=== PATIENT | female | born 1955 | race Caucasian/White ===

== ENCOUNTER → 2018-02-10 07:53 | Outpatient (CLI) | payer OTHER, SELFPAY ==
--- NOTE | 2018-02-10 | DI.MG.S_ITS ---
BILATERAL DIGITAL SCREENING MAMMOGRAM 3D/2D WITH CAD: 02/10/2018 CLINICAL: Routine screening. Family history of breast cancer. Comparison is made to exams dated: 01/04/2017 mammogram, 12/14/2015 mammogram, and 12/10/2014 mammogram - [facility]. The tissue of both breasts is predominantly fatty. Current study was also evaluated with a Computer Aided Detection (CAD) system. No significant masses, calcifications, or other findings are seen in either breast. There has been no significant interval change. IMPRESSION: NEGATIVE There is no mammographic evidence of malignancy. A 1 year screening mammogram is recommended. This exam was interpreted at Station ID: [id number]. NOTE: For mammograms, a report in lay terms will be sent to the patient. Approximately 15% of breast malignancies will not be visualized mammographically. In the management of a palpable breast mass, a negative mammogram must not discourage biopsy of a clinically suspicious lesion. Electronically Signed By: Rachel blake/paulie:02/10/2018 09:35:46 letter sent: Normal Exam ACR BI-RADS Category 1: Negative 3341F
== END ==
PROVIDERS: PCP Family Medicine; Visit Provider Family Medicine
DX: Z12.31 Encounter for screening mammogram for malignant neoplasm of breast (principal); Z80.3 Family history of malignant neoplasm of breast
CPT/HCPCS: 77063; 77067

== ENCOUNTER → 2019-12-26 09:03 | Outpatient (CLI) | payer OTHER, SELFPAY ==
[2019-12-26 10:04] LABS: Add Manual Diff / Slide Review NO; Basophils Absolute Auto 100 /uL (0-100); Basophils Percent Auto 0.7 % (0-2); Eosinophils Absolute Auto 200 /uL (0-450); Eosinophils Percent Auto 2.8 % (2-4); Hematocrit 42.7 % (36-46); Hemoglobin 14.6 g/dL (12.0-16.0); Lymphocytes Absolute Auto 1400 /uL (1100-4500); Lymphocytes Percent Auto 16.6 % (25-40); Mean Corpuscular HGB Conc 34.2 % (30-36); Mean Corpuscular Hemoglobin 31.3 PG (26-34); Mean Corpuscular Volume 91.6 fL (80-100); Monocytes Absolute Auto 500 /uL (0-900); Monocytes Percent Auto 5.8 % (3-14); Neutrophils Absolute Auto 6300 /uL (1500-7000); Neutrophils Percent Auto 74.1 % (50-75); Platelet Count 213 X10^3/uL (150-400); Red Blood Cell Count 4.67 X10^6/uL (4.0-5.2); White Blood Cell Count 8.4 X10^3/uL (4.5-11.0)
[2019-12-26 10:22] LABS: Hemoglobin A1C% w Est Avg Glu 7.2 % (4.0-6.0)
[2019-12-26 10:26] LABS: Alanine Aminotransferase 23 IU/L (<35); Albumin 4.2 g/dL (3.5-5.0); Albumin Globulin Ratio 1.4 (1.0-2.8); Alkaline Phosphatase 78 U/L (38-126); Aspartate Aminotransferase 23 IU/L (14-36); BUN Creatinine Ratio 21.5 (6-22); Bilirubin Total 0.6 mg/dL (0.2-1.3); Blood Urea Nitrogen 17 mg/dL (7-17); Calcium 9.3 mg/dL (8.4-10.2); Carbon Dioxide 31 mmol/L (22-32); Chloride 102 mmol/L (98-107); Cholesterol 128 mg/dL (140-199); Estimated Glomerular Filt Rate > 60.0 mL/min (>60); Globulin 3.1 g/dL (1.7-4.1); Glucose 149 mg/dL (80-110); HDL Cholesterol 49 mg/dL (40-60); HEMOLYSIS 15 (0-50); LDL Cholesterol Calculated 60 mg/dL (<100); Potassium 4.4 mmol/L (3.4-5.1); Sodium 140 mmol/L (137-145); Total Protein 7.3 g/dL (6.3-8.2); Triglycerides 97 mg/dL (35-150)
[2019-12-26 10:49] LABS: Microalbumi Creatinin Ratio Ur 6.1 ug/mg CR (<30); Microalbumin Urine Random 0.6 mg/dL (0-1.6)
== END ==
PROVIDERS: PCP Family Medicine; Referring Provider Family Medicine; Visit Provider Family Medicine
DX: Z00.00 Encounter for general adult medical examination without abnormal findings (principal); E11.9 Type 2 diabetes mellitus without complications; E78.5 Hyperlipidemia, unspecified
CPT/HCPCS: 36415; 80053; 80061; 82043; 82570; 83036; 84443; 85025

== ENCOUNTER → 2020-01-22 11:57 | Outpatient (CLI) | payer OTHER, SELFPAY ==
--- NOTE | 2020-01-22 | DI.MG.S_ITS ---
BILATERAL DIGITAL SCREENING MAMMOGRAM 3D/2D WITH CAD: 01/22/2020 CLINICAL: Routine screening. Family history of breast cancer. Comparison is made to exams dated: 02/10/2018 mammogram and 01/04/2017 mammogram - [facility]. The tissue of both breasts is predominantly fatty. Current study was also evaluated with a Computer Aided Detection (CAD) system. No significant masses, calcifications, or other findings are seen in either breast. There has been no significant interval change. IMPRESSION: NEGATIVE There is no mammographic evidence of malignancy. A 1 year screening mammogram is recommended. This exam was interpreted at Station ID: [id number]. NOTE: For mammograms, a report in lay terms will be sent to the patient. Approximately 15% of breast malignancies will not be visualized mammographically. In the management of a palpable breast mass, a negative mammogram must not discourage biopsy of a clinically suspicious lesion. Electronically Signed By: Placido savage/paulie:01/22/2020 16:54:33 letter sent: Normal Exam ACR BI-RADS Category 1: Negative 3341F
== END ==
PROVIDERS: PCP Family Medicine; Referring Provider Family Medicine; Visit Provider Family Medicine
DX: Z12.31 Encounter for screening mammogram for malignant neoplasm of breast (principal); Z80.3 Family history of malignant neoplasm of breast
CPT/HCPCS: 77063; 77067

== ENCOUNTER → 2021-01-27 15:18 | Outpatient (CLI) | payer OTHER, SELFPAY ==
--- NOTE | 2021-01-27 | DI.MG.S_ITS ---
BILATERAL DIGITAL SCREENING MAMMOGRAM 3D/2D WITH CAD: 01/27/2021 CLINICAL: Routine screening. Comparison is made to exams dated: 01/22/2020 mammogram, 02/10/2018 mammogram, and 01/04/2017 mammogram - [facility]. The tissue of both breasts is predominantly fatty. Current study was also evaluated with a Computer Aided Detection (CAD) system. No significant masses, calcifications, or other findings are seen in either breast. There has been no significant interval change. IMPRESSION: NEGATIVE There is no mammographic evidence of malignancy. A 1 year screening mammogram is recommended. This exam was interpreted at Station ID: [id number]. NOTE: For mammograms, a report in lay terms will be sent to the patient. Approximately 15% of breast malignancies will not be visualized mammographically. In the management of a palpable breast mass, a negative mammogram must not discourage biopsy of a clinically suspicious lesion. Electronically Signed By: Placido savage/paulie:01/27/2021 15:46:59 letter sent: Normal Exam ACR BI-RADS Category 1: Negative 3341F
== END ==
PROVIDERS: PCP Family Medicine; Referring Provider Family Medicine; Visit Provider Family Medicine
DX: Z12.31 Encounter for screening mammogram for malignant neoplasm of breast (principal)
CPT/HCPCS: 77063; 77067

== ENCOUNTER → 2021-03-30 13:08 | Outpatient (CLI) | payer OTHER, SELFPAY ==
--- NOTE | 2021-03-30 | DI.MRI.S_ITS ---
PROCEDURE: MR KNEE LT WO CON INDICATIONS: Pain in left knee TECHNIQUE: Noncontrast sagittal PD fast spin echo and T2 fast spin echo with fat saturation, sagittal 3-D FLASH with fat saturation; coronal T1 spin echo and PD fast spin echo with fat saturation, and axial PD fast spin echo with fat saturation through the knee. COMPARISON: [facility], MR, KNEE WITHOUT CONTRAST, 09/24/2016, 8:31. FINDINGS: Image quality: Excellent. Menisci: Non surfacing signal in the posterior horn, medial meniscus with extrusion. Deficiency of the inner posterior horn, medial meniscus, which may reflect prior meniscectomy. Non surfacing signal in the posterior horn, lateral meniscus, compatible with intrasubstance degeneration. Cruciate ligaments: The anterior and posterior cruciate ligaments appear intact. Medial structures: The medial collateral ligament appears intact. The visualized portions of the pes anserinus tendons appear normal. Trace bursal fluid. Lateral structures: The lateral collateral ligament complex appears intact. The popliteus tendon appears normal; the popliteofibular ligament appears intact. The iliotibial band appears normal. Anterior structures: The quadriceps and patellar tendons appear intact. Patellar alignment is normal. No femoral trochlear dysplasia or ventral trochlear prominence. No edema in the infrapatellar fat pad. Bones and cartilage: No bone marrow contusions or fractures. Thinning and minimal fissuring of the patellar apex hyaline cartilage. Signal heterogeneity with minimal contour irregularity of the lateral compartment hyaline cartilage. The medial compartment hyaline cartilage is essentially maintained. Joint space: Small knee joint fluid. T2 hyperintense lesion in the popliteal fossa, measuring 1.9 x 0.7 x 5 cm, compatible with a Daniel cyst. Normal appearing synovial plicae are incidentally noted. IMPRESSION: 1. Extrusion of the medial meniscus with intrasubstance degeneration and presumed post meniscectomy change. 2. Intrasubstance degeneration of the posterior horn, lateral meniscus. 3. Mild pes anserine bursitis. 4. Mild degenerative changes of the tricompartment hyaline cartilage. 5. Small joint effusion and Daniel cyst. Dictated by: Balaji Davila M.D. on 03/30/2021 at 15:13 Approved by: Balaji Davila M.D. on 03/30/2021 at 15:27
== END ==
PROVIDERS: PCP Family Medicine; Referring Provider Family Medicine; Visit Provider Family Medicine
DX: M25.562 Pain in left knee (principal); M25.461 Effusion, right knee; M71.21 Synovial cyst of popliteal space [Baker], right knee
CPT/HCPCS: 73721

== ENCOUNTER → 2021-08-24 09:15 | Outpatient (CLI) | payer OTHER, SELFPAY ==
[2021-08-24 10:32] LABS: COVID19 -Nasal RAPID Negative (Negative)
== END ==
PROVIDERS: Visit Provider Surgery
DX: Z01.812 Encounter for preprocedural laboratory examination (principal); Z20.822 Contact with and (suspected) exposure to COVID-19
CPT/HCPCS: 87635; C9803

== ENCOUNTER 2021-08-25 10:20 | Day surgery (SDC) | payer OTHER, SELFPAY ==
[2021-08-25 10:37] VITALS: BP 126/66; PULSE 56; RESP 16; TEMP 36.6; O2SAT 99; BMI 33.6
[2021-08-25] MEDS: LACTATED RINGERS 1,000 ML 84 ML IV (10:49)
--- NOTE | 2021-08-25 11:46 | PM.HP.1 ---
History of Present Illness History of Present Illness Date Patient Seen: 08/25/21 Time Patient Seen: 11:47 Chief complaint: [facility] [place] Narrative: Colon cancer screening, last scope 10 years ago, no family history or concerning symptoms. Patient History Surgical History History of carpal tunnel repair Status post delivery Status post delivery Family & Social History Social History: household members spouse Tobacco & Substance use: Smoking Status Never smoker alcohol intake current alcohol intake frequency a few times a month Substance Use Type does not use Meds Home Medications and Allergies Home Medications Medication Instructions Recorded Confirmed Type epinephrine 0.3 mg/0.3 mL 0.3 mg (0.3 mL) IM PRN PRN #1 syr 03/31/16 Rx injection, auto-injector metformin 500 mg tablet,extended #0 03/31/16 History release 24 hr (Glucophage XR) atorvastatin 10 mg tablet (Lipitor) 10 mg DAILY 08/24/21 08/25/21 History Allergies Allergy/AdvReac Type Severity Reaction Status Date / Time No Known Drug Allergies Allergy Verified 08/25/21 10:35 Review of Systems Review of Systems ROS: Yes All systems reviewed with the patient and are negative except as otherwise documented Exam Vital Signs (past 8 hours): - 08/25/21 10:37 Temperature 97.9 F Pulse Rate 56 L Respiratory Rate 16 Blood Pressure 126/66 Pulse Oximetry 99 Oxygen Delivery Method Room Air Const General: cooperative and healthy appearing Nutritional Appearance: average body habitus HENMT Head: normal to inspection, normocephalic and atraumatic Ears: hearing grossly normal bilaterally Neck Neck: trachea midline Chest Chest: normal inspection of the chest Resp Effort & Inspection: normal respiratory effort and able to speak in complete sentences Auscultation: clear to auscultation bilaterally Cardio Rate: regular rate Rhythm: regular rhythm GI Palpation: soft Skin General: no rashes or lesions noted and elasticity normal Neuro General: patient alert and patient awake Cognition: normal cognition Psych Appearance: grossly normal Judgment: judgment good Assessment & Plan Assessment & Plan narrative: colon cancer screening with colonoscopy and moderate sedation COVID-19 COVID-19 status: Negative Time Spent With Patient Critical Care time: I spent a total of [] minutes of critical care time on this patient's care today; this time is exclusive of procedural time.
--- NOTE | 2021-08-25 11:55 | P.OP.COLON_ITS ---
Operative Date/Time/Diagnoses Date of procedure: 08/25/21 Time of procedure: 11:56 Pre-op diagnosis: colon cancer screening Post-op diagnosis: same Procedure & Clinicians Study performed: colonoscopy with moderate sedation Same procedure as scheduled: Yes Indications: colon cancer screening Surgeon: Ayla Wu Procedure Notes SCOAP/Timeout: done Procedure in detail: Preop diagnosis: Colon cancer screening Postop diagnosis: Same Operative procedure: Colonoscopy with moderate sedation Findings: Normal colonoscopy. Scant diverticulosis in the sigmoid colon. No polyps Surgeon: Porsha Wu MD Anesthetic: Versed 3 mg fentanyl 125 mcg Procedure: Patient placed in a lateral position. Rectal exam performed showing normal tone no masses. Colonoscope inserted into the rectum advanced to ileoce venkat valve with minimal difficulty. Insufflation extraction scope with the above findings. Retroflexion was performed in the rectal vault as well with normal findings. Impression: Normal colonoscopy, no polyps, scant diverticulosis of the sigmoid colon Plan: Repeat colonoscopy in 10 years unless otherwise indicated by change in clinical condition Sedation minutes: 16 Findings: divertiulosis Specimen(s): none sent Complications: none Impression: Normal colonoscopy with findings of scant diverticulosis of the sigmoid colon that were small in nature. Post-procedure Recommendations: Colonoscopy in 10 years Plan for aftercare: Repeat colonoscopy 10 years Follow up: as needed Disposition: PACU
[2021-08-25] MEDS: MIDAZOLAM 5 MG/5 ML VIAL 3 MG IV (11:58)
[2021-08-25] MEDS: fentaNYL 250 MCG/5 ML INJ 125 MCG IV (11:58)
[2021-08-25 12:21] VITALS: BP 105/69; PULSE 58; RESP 12; TEMP 36.3; O2SAT 92
[2021-08-25 12:26] VITALS: BP 98/69; PULSE 56; RESP 12; O2SAT 93
[2021-08-25 12:31] VITALS: BP 104/69; PULSE 56; RESP 18; O2SAT 94
[2021-08-25 12:36] VITALS: BP 108/65; PULSE 55; RESP 12; O2SAT 94
== END 2021-08-25 12:47 | disposition home or self-care (01) ==
PROVIDERS: PCP Family Medicine; Referring Provider Surgery; Visit Provider Surgery
PROC: 0DJD8ZZ Inspection of Lower Intestinal Tract, Via Natural or Artificial Opening Endoscopic (ICD-10-PCS; CPT 45378; principal; 2021-08-25 11:30)
DX: Z12.11 Encounter for screening for malignant neoplasm of colon (principal); K57.30 Diverticulosis of large intestine without perforation or abscess without bleeding
CPT/HCPCS: 45378; 99152; J2250; J3010

== ENCOUNTER → 2021-12-13 11:03 | Outpatient (CLI) | payer OTHER, SELFPAY ==
--- NOTE | 2021-12-20 13:35 | DIAB.MNT ---
Initial Diabetes Medical Nutrition Therapy Assessment Name: Carrie Bustillos Date: 12/13/21 Time: 1110a-1215p Dx: Type II Diabetes Provider: Anne Carrie presents today for some guidance on meals. States she really enjoys carbohydrates, but has been trying to limit them. Also endorses skipping breakfast often. States he stomach is often upset if she eats, but she tries to have something to take with Metformin. Ends up taking first dose of Metformin at 12p with lunch. Might benefit from Metformin XR due to difficulty with timing. Recent stomach upset with egg intake. Unclear if this is due to timing of intake or actual eggs. Reports grazing in the evening after trying to not eat after dinner Also endorses candy intake a couple days per week. Finds Dm care overwhelming at times due to worry with DM complication risk. This mostly comes from her mother losing her eye sight, having wounds, and dialysis. She is very motivated to manage her DM. +FH of DM with mother, brother, maternal grandmother PMH of Dm for about 2 years reported. Diet Recall: 7a: coffee with NF cream x 2c 12a: turkey sandwich with avocado and veggies +/- apple 630p: chicken, corn on cob and baked potato 8p: 3c watermelon 10p: handful of wheat thins sn: good and plenty candy Beverages: 4-5 x 16oz water, some fresca Anthropometrics: Ht: 63 Wt: 196# reported Physical Activity: Walks 2-5 mi most days of the week up until the last 2 weeks. 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 Self-Monitoring Blood Glucose: none Diabetes Medications: 1000mg Metformin BID Pertinent Labs: hgA1c: 6.7% FBG 106 Past Medical History: Reported meniscus tea sx cataract sx T2DM Nutrition Rx: Carbohydrates: Meal: 30-45g Snack: 15-30g Nutrition Diagnosis: - Excessive CHO intake r/t nutrition knowledge deficit of carb amt for some meals and candy intake aeb pt report and diet recall - Reduced physical activity r/t listing house aeb pt report Intervention: This participant was very receptive. Provided appropriate educational handouts. Discussed the following topics: Completed intake assessment. Discussed barriers to care. Meal timing and setting a snack time to avoid grazing making snack satisfying to avoid additional grazing Avoiding candy or portioning out ahead of time prn Plate Method, impact of macronutrients on blood sugar, meal timing, carbohydrate counting, pairing macronutrients and spreading out carbohydrates for better blood glucose management Recommended servings for carbohydrates at meals and snacks Breakfast ideas easy on the stomach for her Snack ideas paired Brainstormed appropriate meal plan based on food preferences Role of physical activity Potential for XR Metformin Created SMART goals for patient self-care and success. Goals: Discuss potential of XR Metformin with provider to reduce need for taking 12 hr apart- new Set a snack time in evening Try eggs later in the day Follow-up: [facility] follow-up prn. Carrie seems to be managing her DM well. She would like to check-in prn. Provided her with my card and encouraged her to call or message with any questions or follow-up needs. She agreed. Shell Abrams RDN, [facility] Certified Diabetes Care and Paintings Restorer P: [phone] Thank you for this referral
== END ==
PROVIDERS: PCP Family Medicine; Referring Provider Family Medicine; Visit Provider Family Medicine
DX: E11.9 Type 2 diabetes mellitus without complications (principal); Z79.84 Long term (current) use of oral hypoglycemic drugs; Z71.3 Dietary counseling and surveillance
CPT/HCPCS: 97802

== ENCOUNTER → 2024-02-14 13:06 | Outpatient (CLI) | payer MEDICARE, OTHER, SELFPAY ==
[2024-02-14 13:54] LABS: Add Manual Diff / Slide Review NO; Basophils Absolute Auto 0 /uL (0-100); Basophils Percent Auto 0.6 % (0-2); Eosinophils Absolute Auto 200 /uL (0-450); Eosinophils Percent Auto 2.6 % (2-4); Hematocrit 46.6 % (36-46); Hemoglobin 15.8 g/dL (12.0-16.0); Lymphocytes Absolute Auto 2000 /uL (1100-4500); Mean Corpuscular HGB Conc 33.9 % (30-36); Mean Corpuscular Hemoglobin 31.7 PG (26-34); Mean Corpuscular Volume 93.4 fL (80-100); Monocytes Absolute Auto 500 /uL (0-900); Monocytes Percent Auto 6.5 % (3-14); Neutrophils Absolute Auto 4700 /uL (1500-7000); Neutrophils Percent Auto 63.3 % (50-75); Platelet Count 213 X10^3/uL (150-400); Red Blood Cell Count 4.99 X10^6/uL (4.0-5.2); Red Cell Distribution Width 13.2 % (11.6-14.8); White Blood Cell Count 7.4 X10^3/uL (4.5-11.0)
[2024-02-14 14:13] LABS: Alanine Aminotransferase 25 IU/L (<35); Albumin 4.4 g/dL (3.5-5.0); Albumin Globulin Ratio 1.4 (1.0-2.8); Alkaline Phosphatase 93 U/L (38-126); Aspartate Aminotransferase 28 IU/L (14-36); BUN Creatinine Ratio 18.1 (6-22); Bilirubin Total 0.9 mg/dL (0.2-1.3); Blood Urea Nitrogen 17 mg/dL (7-17); C-Reactive Protein Quant < 0.5 mg/dL (<1.0); Calcium 9.3 mg/dL (8.4-10.2); Carbon Dioxide 28 mmol/L (22-32); Chloride 105 mmol/L (98-107); Estimated Glomerular Filt Rate > 60 mL/min (>60); Globulin 3.1 g/dL (1.7-4.1); Glucose 113 mg/dL (80-110); HEMOLYSIS < 15 (0-50); Potassium 4.3 mmol/L (3.4-5.1); Sodium 139 mmol/L (137-145); Total Protein 7.5 g/dL (6.3-8.2)
[2024-02-14 14:16] LABS: Rheumatoid Factor < 8.6 IU/mL (<12.0)
[2024-02-14 14:41] LABS: Thyroid Stimulating Hormone 1.15 uIU/mL (0.47-4.68)
[2024-02-14 14:57] LABS: Erythrocyte Sedimentation Rate 18 MM/HR (0-20)
== END ==
LOC: LAB 13:14
PROVIDERS: PCP Family Medicine; Referring Provider Family Medicine; Visit Provider Family Medicine
DX: R21 Rash and other nonspecific skin eruption (principal); L29.9 Pruritus, unspecified; Z82.61 Family history of arthritis; Z13.0 Encounter for screening for diseases of the blood and blood-forming organs and certain disorders involving the immune mechanism
CPT/HCPCS: 36415; 80053; 84443; 85025; 85651; 86038; 86140; 86430

== ENCOUNTER → 2024-09-29 14:28 | Outpatient (CLI) | payer MEDICARE, OTHER, SELFPAY ==
--- NOTE | 2024-09-29 14:31 | DI.MG.S_ITS ---
MM screening mammo BI: 09/29/2024. BI-RADS: 1 CLINICAL: 69-year old female for bilateral screening mammogram. Tyrer-Cuzick lifetime risk of 8.2%. No personal or first-degree family history of breast cancer. Current reported family history of breast cancer: maternal aunt. PRIOR EXAMS 01/27/2021, 01/22/2020, 02/10/2018. MAMMOGRAPHY TECHNIQUE: 2D and 3D (tomosynthesis) digital mammographic views obtained, with additional images as needed for full coverage. Current study was also evaluated with a Computer Aided Detection (CAD) system. DENSITY B. There are scattered areas of fibroglandular density. MAMMOGRAPHY FINDINGS Bilateral: No suspicious mass, asymmetry, microcalcification, or other abnormality seen. No significant change from comparison. IMPRESSION: * No evidence of malignancy. RECOMMENDATIONS Bilateral * Annual screening mammography. OVERALL ASSESSMENT CATEGORY BI-RADS-1: Negative. The [employer] recommends annual screening mammography beginning at age 40 for women with average risk of breast cancer. PRELIMINARILY ELECTRONICALLY SIGNED: Joana Pfeiffer M.D. on 09/29/2024 at 11:38:14 PM PT ELECTRONICALLY SIGNED: Joana Pfeiffer M.D. on 10/02/2024 at 05:07:20 PM PT Interpreting Station ID: [id number]
--- NOTE | 2024-09-29 14:31 | DI.RAD.S_ITS ---
PROCEDURE: XR DEXA AXIAL SKELETON INDICATIONS: ROUTINE SCREENING/SCREENING FOR OSTEOPOROSIS COMPARISON: None. FINDINGS: Lumbar Spine: Bone mineral density 1.047 g/cm2, T score 0.3. Left Femoral Neck: Bone mineral density 0.790 g/cm2, T score -0.5. Left Hip: Bone mineral density 0.991 g/cm2, T score 0.4. Fracture Risk Calculation (when applicable): 10-year fracture risk of a major osteoporotic fracture 7.5 percent and of a hip fracture 0.4 percent. (T score greater or equal to -1.0 to: NORMAL) (T score from -1.1 to -2.4: OSTEOPENIA) (T score less than or equal to -2.5: OSTEOPOROSIS) IMPRESSION: Normal--- recommend repeat DEXA as clinically indicated. Follow-up guidelines as follows: Osteoporosis: Consider a repeat DEXA and Vertebral Fracture Assessment (VFA) exam in 2 years or sooner if medically necessary, to reassess this patient's status. Osteopenia: Consider a repeat DEXA in 2-3 years to reassess this patient's status, or if there is a new clinical indication. Normal: Consider a repeat DEXA in 5 years or sooner, or if there is a new clinical indication. All treatment decisions require clinical judgment and consideration of individual patient factors, including patient preferences, comorbidities, previous drug use, risk factors not captured in the FRAX model (e.g., frailty, falls, vitamin D deficiency, increased bone turnover, interval significant decline in bone density ) and possible under- or over-estimation of fracture risk by FRAX. In addition, the NOF Guide recommends that FDA-approved medical therapies be considered in postmenopausal women and men age >= 50 years with a: * Hip or vertebral (clinical or morphometric) fracture * T-score of <=-2.5 at the spine or hip * Ten-year fracture probability by FRAX of >= 3% for hip fracture or >=20% for major osteoporotic fracture. Dictated by: Ede Ríos M.D. on 09/29/2024 at 19:17 Approved by: Ede Ríos M.D. on 09/29/2024 at 19:19
== END ==
PROVIDERS: PCP Family Medicine; Referring Provider Family Medicine; Visit Provider Family Medicine
DX: Z12.31 Encounter for screening mammogram for malignant neoplasm of breast (principal); Z80.3 Family history of malignant neoplasm of breast; M85.89 Other specified disorders of bone density and structure, multiple sites; Z78.0 Asymptomatic menopausal state
CPT/HCPCS: 77063; 77067; 77080